=== PATIENT | male | born 1940 | race Caucasian/White ===

== ENCOUNTER 2021-01-08 06:23 | Day surgery (SDC) | payer MEDICARE ==
[2021-01-07 12:53] LABS: BASOPHILS % (AUTO) 0.7 % (0.0-5.0); EOSINOPHILS % (AUTO) 6.6 % (0.0-8.0); HEMATOCRIT 44.3 % (42-54); LYMPHOCYTES % (AUTO) 14.8 % (21.0-51.0); MEAN CORPUSCULAR HEMOGLOBIN 33.4 pg (27.0-33.0); MEAN CORPUSCULAR HGB CONC 34.1 g/dL (32.0-36.0); MONOCYTES % (AUTO) 9.7 % (3.0-13.0); NEUTROPHILS % (AUTO) 67.4 % (40.0-77.0); PLATELET COUNT (AUTO) 213 K/uL (130-400); RED BLOOD CELL COUNT(AUTO) 4.52 MIL/uL (4.50-6.20); RED CELL DISTRIBUTION WIDTH 13.2 % (11.0-15.5); WHITE BLOOD COUNT (AUTO) 7.6 K/uL (4.8-10.8)
[2021-01-07 13:01] LABS: CREATININE 1.4 mg/dL (0.5-1.5); POTASSIUM 4.2 mmol/L (3.5-5.1)
[2021-01-07 15:59] VITALS: BP 118/72
[2021-01-08] VITALS (16 sets, daily range): BP systolic 104–131; BP diastolic 58–80
[~2021-01-08] VITALS: Ht 175.3 cm; Wt 92.1 kg
[~2021-01-08 06:23] MED LIST: CARB-38 PO; P-EP-94 PO; PRIM50TA29 PO
[2021-01-08] MEDS ORDERED: CETI10TA57 PO (07:10)
[2021-01-08] MEDS ORDERED: CLONIDINE SL (07:10)
[2021-01-08] MEDS ORDERED: LACTATED RINGERS 1000ML 1,000 ML IV ONE (07:16)
[2021-01-08] MEDS: CEFAZOLIN SODIUM 1 GM VIAL ONE ×2 (07:48→08:35)
[2021-01-08] MEDS ORDERED: LIDOCAINE PF 100MG/5ML (2%) SYRINGE 5ML ONE (08:05)
[2021-01-08] MEDS ORDERED: PROPOFOL 10 MG/ML 20ML VIAL IV ONE (08:06)
[2021-01-08] MEDS ORDERED: FENTANYL CITRATE PF 50 MCG/1 ML 2ML VIAL ONE (08:06)
[2021-01-08] MEDS ORDERED: PHENYLEPHRINE HCL 10 MG/ML 1ML VIAL IV ONE (08:54)
[2021-01-08] MEDS ORDERED: 0.9%NACL 10ML VIAL ONE (08:55)
[2021-01-08] MEDS ORDERED: CEPH500B PO (09:59)
[2021-01-08] MEDS ORDERED: ACET1TAB25 PO (09:59)
[2021-01-08] MEDS ORDERED: MEPERIDINE-PF 25 MG/ML SYG ONE ×2 (10:14→10:30)
== END 2021-01-08 12:00 | disposition home or self-care (01) ==
LOC: DAH 06:23
PROVIDERS: ATTEND Orthopaedic Surgery
DX: M67.262 Synovial hypertrophy, not elsewhere classified, left lower leg (principal); M22.2X2 Patellofemoral disorders, left knee; G89.29 Other chronic pain; G20 Parkinson's disease; M19.90 Unspecified osteoarthritis, unspecified site; Z98.890 Other specified postprocedural states; Z85.828 Personal history of other malignant neoplasm of skin; Z79.899 Other long term (current) drug therapy; Z96.652 Presence of left artificial knee joint; Z20.822 Contact with and (suspected) exposure to COVID-19
CPT/HCPCS: 29873; 29875; 36415; 80048; 85025; 87426; A4215; A4221; A4222; A4223; A4649 ×2; A4663; A4930; A6223; J0690; J2001; J2175 ×2; J2370; J2704; J3010; J7120

== ENCOUNTER 2021-03-13 14:56 | Inpatient (IN) | payer MEDICARE ==
[~2021-03-13] VITALS: Ht 175.3 cm; Wt 93.0 kg
[~2021-03-13 14:56] MED LIST changes: +ACET1TAB25 PO; +CEPH500B PO; +CETI10TA57 PO; +CLONIDINE SL
[2021-03-13 15:16] LABS: BASOPHILS % (AUTO) 0.5 % (0.0-5.0); EOSINOPHILS % (AUTO) 6.1 % (0.0-8.0); MEAN CORPUSCULAR HEMOGLOBIN 32.4 pg (27.0-33.0); MEAN CORPUSCULAR HGB CONC 34.3 g/dL (32.0-36.0); MEAN CORPUSCULAR VOLUME 94.6 fL (79-99); NEUTROPHILS % (AUTO) 67.5 % (40.0-77.0); PLATELET COUNT (AUTO) 208 K/uL (130-400); RED BLOOD CELL COUNT(AUTO) 4.44 MIL/uL (4.50-6.20); WHITE BLOOD COUNT (AUTO) 9.6 K/uL (4.8-10.8)
[2021-03-13 15:43] LABS: INR 1.06 (0.85-1.15); PROTHROMBIN TIME 11.5 SEC (9.6-11.6)
[2021-03-13 15:45] LABS: PARTIAL THROMBOPLASTIN TIME 27.9 SEC (26.3-35.5)
[2021-03-13 15:49] LABS: CREATININE 1.3 mg/dL (0.5-1.5); POTASSIUM 3.8 mmol/L (3.5-5.1)
[2021-03-13 15:55] LABS: ABG BASE EXCESS -2.5 mmol/L (-2.0-3.0); ABG HCO3 20.3 mmol/L (21.0-28.0); ABG OXYGEN SATURATION 91.7 % (95.0-99.0); ABG PCO2 30 mmHg (35-48)
[2021-03-13 15:59] LABS: ALBUMIN 3.6 g/dL (3.5-5.0); BILIRUBIN,TOTAL 0.5 mg/dL (0.2-1.0); TOTAL PROTEIN, SERUM 7.5 g/dL (6.0-8.3)
[2021-03-13] MEDS ORDERED: IOHEXOL-350 75 ML VIAL IV ONE (16:38)
[2021-03-13] MEDS ORDERED: 0.9% NACL 500ML IV.SOLN 500 ML IV ONE (18:30)
[2021-03-13] MEDS ORDERED: HEPARIN 5,000 UNIT VIAL IV ONE (19:00)
[2021-03-13] MEDS ORDERED: HEPARIN 5,000 UNIT VIAL ONE (20:12)
[2021-03-13] MEDS: HEPARIN 25000 UNITS/D5W 250ML IV SCH (20:26)
[2021-03-13] MEDS ORDERED: ONDANSETRON 4MG INJ IV PRN (20:30)
[2021-03-13] MEDS ORDERED: MORPHINE 2 MG SYG IV PRN (20:30)
[2021-03-13] MEDS ORDERED: FAMOTIDINE 20MG VIAL IV SCH (21:00)
[2021-03-13] MEDS: LACTATED RINGERS 1000ML 1,000 ML IV SCH (22:26)
[2021-03-14 01:55] LABS: INR 1.14 (0.85-1.15); PROTHROMBIN TIME 12.3 SEC (9.6-11.6)
[2021-03-14 02:10] LABS: PARTIAL THROMBOPLASTIN TIME > 139.0 SEC (26.3-35.5)
[2021-03-14 04:52] LABS: ABG BASE EXCESS -0.4 mmol/L (-2.0-3.0); ABG HCO3 22.8 mmol/L (21.0-28.0); ABG OXYGEN SATURATION 95.8 % (95.0-99.0); ABG PCO2 34 mmHg (35-48)
[2021-03-14 07:10] LABS: BASOPHILS % (AUTO) 0.5 % (0.0-5.0); HEMATOCRIT 39.1 % (42-54); LYMPHOCYTES % (AUTO) 17.3 % (21.0-51.0); MEAN CORPUSCULAR HEMOGLOBIN 33.3 pg (27.0-33.0); MEAN CORPUSCULAR HGB CONC 34.5 g/dL (32.0-36.0); MEAN CORPUSCULAR VOLUME 96.3 fL (79-99); MONOCYTES % (AUTO) 8.3 % (3.0-13.0); NEUTROPHILS % (AUTO) 65.3 % (40.0-77.0); PLATELET COUNT (AUTO) 164 K/uL (130-400); RED BLOOD CELL COUNT(AUTO) 4.06 MIL/uL (4.50-6.20); WHITE BLOOD COUNT (AUTO) 6.5 K/uL (4.8-10.8)
[2021-03-14 07:20] LABS: CREATININE 1.1 mg/dL (0.5-1.5); PHOSPHORUS 3.6 mg/dL (2.5-4.9)
[2021-03-14 07:35] LABS: INR 1.1 (0.85-1.15); PROTHROMBIN TIME 11.9 SEC (9.6-11.6)
[2021-03-14 07:47] LABS: PARTIAL THROMBOPLASTIN TIME 98.2 SEC (26.3-35.5)
[2021-03-14 08:14] VITALS: BP 123/85
[2021-03-14 09:00] VITALS: BP 131/79
[2021-03-14 10:00] VITALS: BP 128/76
[2021-03-14] MEDS: LACTATED RINGERS 1000ML 1,000 ML IV SCH (10:05)
[2021-03-14] MEDS ORDERED: PANTOPRAZOLE 40 MG/VIAL IVP SCH (13:02)
[2021-03-14] MEDS: HEPARIN 25000 UNITS/D5W 250ML IV SCH (14:53)
== END 2021-03-14 15:00 | disposition short-term general hospital (02) | DRG 299 ==
LOC: EDH 14:56 → EDHIP 20:07 → 2DH 03-14 08:09
PROVIDERS: ADMIT Internal Medicine; ATTEND Internal Medicine
DX: I82.411 Acute embolism and thrombosis of right femoral vein (principal); I26.09 Other pulmonary embolism with acute cor pulmonale; J96.01 Acute respiratory failure with hypoxia; I82.432 Acute embolism and thrombosis of left popliteal vein; I82.431 Acute embolism and thrombosis of right popliteal vein; M19.90 Unspecified osteoarthritis, unspecified site; J44.9 Chronic obstructive pulmonary disease, unspecified; G20 Parkinson's disease; Z20.822 Contact with and (suspected) exposure to COVID-19; Z85.828 Personal history of other malignant neoplasm of skin; Z83.3 Family history of diabetes mellitus; Z82.49 Family history of ischemic heart disease and other diseases of the circulatory system
CPT/HCPCS: 36415; 36600; 71045; 71275; 80048; 80053; 82435; 82803; 82947; 83605; 83735; 83880; 84100; 84132; 84295; 84484; 85018; 85025; 85610; 85730; 86850; 86900; 86901; 87040; 87635; 87804; 93005; 93306; 93356; 93970; 99291; 99292; C9803; G0378; J1644; J3490; J7120; Q9967

== ENCOUNTER → 2022-11-19 | Outpatient (CLI) | payer MEDICARE ==
[~2022-11-19] MED LIST changes: +ACET-2079 PO; -ACET1TAB25 PO
== END | disposition home or self-care (01) ==
LOC: RAH 13:35
PROVIDERS: ATTEND Internal Medicine Critical Care Medicine
DX: I24.0 Acute coronary thrombosis not resulting in myocardial infarction (principal); I82.411 Acute embolism and thrombosis of right femoral vein
CPT/HCPCS: 93970

== ENCOUNTER → 2023-01-05 | Outpatient (CLI) | payer MEDICARE | END | disposition home or self-care (01) | LOC: RAH 13:40 | PROVIDERS: ATTEND Internal Medicine Critical Care Medicine | DX: I08.0 Rheumatic disorders of both mitral and aortic valves (principal); J81.1 Chronic pulmonary edema; I27.20 Pulmonary hypertension, unspecified | CPT/HCPCS: 93306 ==

== ENCOUNTER → 2023-01-27 | Outpatient (CLI) | payer MEDICARE | END | disposition home or self-care (01) | LOC: RAH 14:17 | PROVIDERS: ATTEND Internal Medicine Critical Care Medicine | DX: J84.112 Idiopathic pulmonary fibrosis (principal); I25.10 Atherosclerotic heart disease of native coronary artery without angina pectoris; J47.9 Bronchiectasis, uncomplicated | CPT/HCPCS: 71250 ==

== ENCOUNTER 2025-01-18 15:44 | Observation (INO) | payer MEDICARE ==
[~2025-01-18] VITALS: Ht 170.2 cm; Wt 77.6 kg
[~2025-01-18 15:44] MED LIST changes: -ACET-2079 PO; +AMIO200T73 PO; +APIX2.5T PO; +ASCO10004 PO; +ASPI-1005 PO; -CEPH500B PO; -CLONIDINE SL; +DAPA10TA PO; +DIGO125T71 PO; +DOCU100C33 PO; +EZET10TA80 PO; +FURO20TA6 PO; +GABA-529 PO; +IPRA3AMP24 NEB; +LEVO75TA10 PO; +MELA5CAP PO; +METO25TA6 PO; +MIDO10TA3 PO; -P-EP-94 PO; +PRIM50TA23 PO; -PRIM50TA29 PO
--- NOTE | 2025-01-18 15:56 | ERN ---
ED Note History of Present Illness Stated Complaint: CHEST PAIN Chief Complaint: Chest Pain Time Seen by MD: 15:47 Dictation: PATIENT IS A 84-YEAR-OLD MALE COMING FROM A LOCAL GROUP HOME VIA EMS WITH COMPLAINTS OF ANTERIOR CHEST PAIN THAT HURTS WHEN YOU TOUCH IT ONSET THIS MORNING. NO SOB NO JAW PAIN NO ARM PAIN NO BACK PAIN. STATES HE DOES HAVE A HISTORY OF CARDIAC DISEASE. PATIENT HAS A RASH TO HIS LEFT ANTERIOR CHEST THAT DOES NOT CROSS MIDLINE VESICULAR. Allergies: Coded Allergies: No Known Drug Allergies (Verified Allergy, Unknown, 06/28/15) Home Meds Reported Medications Gabapentin (Gabapentin) 100 Mg Capsule, 1 CAP PO TID for 30 Days, #90 CAP 0 Refills 10/20/24 Carbidopa/Levodopa (Carbidopa-Levo 25-100 mg Odt) 25 Mg-100 Mg Tab.rapdis, 1 TAB PO TID for 30 Days, #90 TAB 0 Refills 10/20/24 Ezetimibe (Ezetimibe) 10 Mg Tablet, 1 TAB PO DAILY for 30 Days, #30 TAB 0 Refills 10/20/24 Melatonin (Melatonin) 5 Mg Capsule, 1 CAP PO HS for sleep for 30 Days, #30 CAP 0 Refills 10/20/24 Levothyroxine Sodium (Levothyroxine Sodium) 75 Mcg Tablet, 1 TAB PO DAILY for 30 Days, #30 TAB 0 Refills 25 Ascorbic Acid (Vitamin C) 1,000 Mg Tablet, 1 TAB PO DAILY for 15 Days, #15 TAB 0 Refills DIRECTED 10/20/24 Amiodarone HCl (Amiodarone HCl) 200 Mg Tablet, 1 TAB PO DAILY for 30 Days, #30 TAB 0 Refills 10/20/24 Aspirin (ASPIRIN 81MG CHEW TAB) 81 Mg Tab.chew, 1 TAB PO DAILY for 30 Days, #30 TAB 0 Refills 10/20/24 Cetirizine HCl (Cetirizine HCl) 10 Mg Tablet, 1 TAB PO DAILY for 30 Days, #30 TAB 0 Refills 10/20/24 Dapagliflozin Propanediol (Farxiga) 10 Mg Tablet, 1 TAB PO DAILY for 30 Days, #30 TAB 0 Refills 10/20/24 Docusate Sodium (Docusate Sodium) 100 Mg Capsule, 1 CAP PO BID for constipation for 7 Days, #14 CAP 0 Refills 10/20/24 Furosemide (Lasix 20Mg Tab) 20 Mg Tablet, 1 TAB PO DAILY for 30 Days, #30 TAB 0 Refills 10/20/24 Primidone (Mysoline) 50 Mg Tablet, 50 MG PO AM, TAB 10/20/24 Metoprolol Tartrate (Metoprolol Tartrate) 25 Mg Tablet, 12.5 MG PO BID, TAB 10/20/24 Digoxin (Digoxin) 125 Mcg (0.125 Mg) Tablet, 1 TAB PO AD for 30 Days, #30 TAB 0 Refills 10/20/24 Midodrine HCl (Midodrine HCl) 10 Mg Tablet, 10 MG PO AD, TAB 10/20/24 Ipratropium/Albuterol Sulfate (Iprat-Albut 0.5-3(2.5) mg/3 ml) 0.5 Mg-3 Mg (2.5 Mg Base)/3 Ml Ampul.neb, 1 VIAL NEB BID PRN for SHORTNESS OF BREATH/WHEEZING for 30 Days, #180 ML 0 Refills 10/20/24 Apixaban (Eliquis) 2.5 Mg Tablet, 1 TAB PO BID for 30 Days, #60 TAB 0 Refills 10/20/24 Past Medical History Past Medical History: Anxiety, Arrythmia, CHF, Diverticulosis, GERD, Hypertension, Hypothyroid, Hypotension, Other Additional Past Medical Hx: parkinsons, sleep apnea, insomnia, hypermatremia, epilepsy Surgical History: CABG Surgical History Other: ORTHOSCOPIC KNEE LEFT, BACK , RN Note Reviewed/Agreed w/PFSH: Yes Review of System Dictation CONSTITUTIONAL: NEGATIVE EXCEPT FOR HPI HEAD/FACE: NEGATIVE EXCEPT FOR HPI EENT: NEGATIVE EXCEPT FOR HPI RESPIRATORY: NEGATIVE EXCEPT FOR HPI CHEST PAIN THAT IS BURNING GASTROINTESTINAL/ABDOMINAL: NEGATIVE EXCEPT FOR HPI GENITOURINARY: NEGATIVE EXCEPT FOR HPI MUSCULOSKELETAL: NEGATIVE EXCEPT FOR HPI INTEGUMENTARY: NEGATIVE EXCEPT FOR HPI NEUROLOGICAL/PSYCH: NEGATIVE EXCEPT FOR HPI HEMATOLOGIC/LYMPHATIC: NEGATIVE EXCEPT FOR HPI ALL SYSTEMS NEGATIVE, EXCEPT NOTED ABOVE. 13 POINT REVIEW OF SYSTEMS ASSESSED AND ALL NEGATIVE EXCEPT FOR ABOVE. Initial Vital Sign VS Vital Signs Date Time Temp Pulse Resp B/P (MAP) Pulse Ox O2 Delivery O2 Flow Rate FiO2 01/18/25 15:45 83 20 119/83 97 Room Air* 0 21 Physical Exam Dictation VITAL SIGNS REVIEWED GENERAL APPEARANCE: ALERT, ORIENTED X 3, MODERATE ACUTE DISTRESS, WELL DEVELOPED, NOURISHED. HEAD AND FACE: NON-TRAUMATIC. EYES: PERRL, PINK CONJUNCTIVAS, EYELID NO TRAUMA, ANTERIOR CHAMBER WITH ARCUS SENILIS. EARS: PINNAS INTACT AND NO SIGNS OF TRAUMA OR ERYTHEMA EAR CANALS CLEAR AND NO DISCHARGE TM NO ERYTHEMA NOSE: NO DISCHARGE, NO BLEEDING. OROPHARYNX: MOUTH NORMAL, TONGUE PINK, PHARYNX CLEAR,NO ERYTHEMA, TONSILS NO EXUDATES, NO ABSCESSES NOTED, MUCOUS MEMBRANE MOIST NECK: SUPPLE, NON-TENDER, NO THYROMEGALY, NO MASSES, NO JVD, NO BRUITS BREAST:DEFERRED CHEST:NO TENDERNESS, NO CREPITUS, NO PARADOXICAL MOVEMENT, NO RETRACTIONS LUNGS:CLEAR, WELL-VENTILATED, SYMMETRIC, NO RALES, NO WHEEZING, NO RHONCHI, NO STRIDOR, GOOD BREATH SOUNDS BILATERALLY HEART: REGULAR RATE, REGULAR RHYTHM, NO MURMUR, NO GALLOPS VASCULAR: NO PERIPHERAL EDEMA, ABDOMEN: SOFT, POSITIVE BOWEL SOUNDS, NONDISTENDED, NO GUARDING, NONTENDER, NO REBOUND, NO MASSES NO HEPATOMEGALY, NO SPLENOMEGALY, NO NAPOLES'S SIGN, NO HERNIAS. RECTAL: DEFERRED GENITAL: DEFERRED NEUROLOGICAL: NORMAL SPEECH, MOTOR FUNCTION INTACT, SENSORY FUNCTION INTACT MUSCULOSKELETAL: NECK NONTENDER, FULL RANGE OF MOTION, BACK NONTENDER, FULL RANGE OF MOTION, EXTREMITIES: NONTENDER, FULL RANGE OF MOTION SKIN: COLOR PINK, SHINGLES RASH VESICULAR AND CONFLUENT TO LEFT ANTERIOR CHEST DOES NOT CROSS MIDLINE LYMPHATIC: DEFERRED Results (Laboratory/Radiology) Laboratory/Radiology Laboratory Tests Test 01/18/25 16:15 01/18/25 20:15 White Blood Count 6.7 K/uL (4.8-10.8) Red Blood Count 3.69 MIL/uL (4.50-6.20) L Hemoglobin 11.5 g/dL (14.0-18.0) L Hematocrit 36.6 % (42-54) L Mean Corpuscular Volume 99.2 fL (79-99) H Mean Corpuscular Hemoglobin 31.2 pg (27.0-33.0) Mean Corpuscular Hemoglobin Concent 31.4 g/dL (32.0-36.0) L Red Cell Distribution Width 17.0 % (11.0-15.5) H Platelet Count 317 K/uL (130-400) Mean Platelet Volume 8.3 fL (7.5-10.5) Immature Granulocyte % (Auto) 0.7 % (0-1) Neutrophils (%) (Auto) 82.5 % (40.0-77.0) H Lymphocytes (%) (Auto) 9.1 % (21.0-51.0) L Monocytes (%) (Auto) 7.3 % (3.0-13.0) Eosinophils (%) (Auto) 0.3 % (0.0-8.0) Basophils (%) (Auto) 0.1 % (0.0-5.0) Neutrophils # (Auto) 5.5 K/uL (1.8-7.7) Lymphocytes # (Auto) 0.6 K/uL (1.0-4.8) L Monocytes # (Auto) 0.5 K/uL (0.1-1.0) Eosinophils # (Auto) 0.02 K/uL (0.00-0.70) Basophils # (Auto) 0.01 K/uL (0.00-0.20) Absolute Immature Granulocyte (auto 0.05 K/uL (0-1) Nucleated Red Blood Cells 0.0 % (0.0-0.19) White Cell Morphology Comment See comments Sodium Level 139 mmol/L (136-145) Potassium Level 4.1 mmol/L (3.5-5.1) Chloride Level 98 mmol/L (101-111) L Carbon Dioxide Level 33 mmol/L (21-32) H Blood Urea Nitrogen 21 mg/dL (7-18) H Creatinine 1.1 mg/dL (0.5-1.3) Glomerular Filtration Rate Calc 66 mL/min (>90) Random Glucose 181 mg/dL (70-105) H Total Calcium 9.3 mg/dL (8.5-10.1) Magnesium Level 2.30 mg/dL (1.80-2.40) Troponin I High Sensitivity 15 ng/L (4-75) 44 ng/L (4-75) B-Type Natriuretic Peptide 164 pg/mL (0-100) H CHEST 1VW REASON: CHEST PAIN COMPARISON: Prior study from 11/06/2024 is available. FINDINGS: Single view of the chest was obtained. There is prominence of interstitial changes suggesting of interstitial fibrosis which was seen before and appears to be unchanged with no evidence of airspace consolidation or pulmonary venous congestion. The cardiac silhouette is within the limits of normal with median sternotomy with left atrial clipping.. There is no pulmonary vascular congestion. Mediastinum and bony thorax appear unremarkable. IMPRESSION: 1. Interstitial fibrosis which was seen before and appears to be unchanged 2. Status post median sternotomy with cardiac revascularization procedure with left atrial clipping. Labs Reviewed?: Yes EKG Comment: EKG IS SINUS RHYTHM/HEART RATE 84/OK INTERVAL 253 MILLISECONDS. QT INTERVAL 513 MILLISECONDS ED Course ED Course Orders Procedure Category Date Status Time B-Type Natriuretic LAB 01/18/25 Complete Peptide 15:53 Cbc With Differential LAB 01/18/25 Complete 15:53 Chest 1vw RAD 01/18/25 Resulted 15:53 Magnesium LAB 01/18/25 Complete 15:53 Troponin I High LAB 01/18/25 Complete Sensitivity 15:53 Aspirin 325mg Tab PHA 01/18/25 Complete (Aspirin 325mg Tab) 16:00 Urinalysis Profile LAB 01/18/25 Logged 15:53 Basic Metabolic Panel LAB 01/18/25 Complete 15:53 Morphine 2mg Syg PHA 01/18/25 Complete (Morphine 2mg Syg) 17:00 Ondansetron 4mg Inj PHA 01/18/25 Complete (Zofran 4mg Inj) 17:00 0.9%Nacl 1000ml (Ns PHA 01/18/25 Complete 1000ml) 18:00 12 Lead Ekg Tracing- EKG 01/18/25 Complete Technical 20:04 Troponin I High LAB 01/18/25 Complete Sensitivity 20:04 Edm Admit Bridge Order ADM 01/18/25 Verified 20:44 Admit Orders ADM 01/18/25 Verified 20:44 Current Medications Medications (Trade) Dose Ordered Sig/Andreia Route PRN Reason Start Time Stop Time Status Last Admin Dose Admin Aspirin (Aspirin 325mg Tab) 325 mg ONCE ONCE PO 01/18/25 16:00 01/18/25 16:01 DC 01/18/25 16:56 Morphine Sulfate (morPHINE 2MG SYG) 2 mg ONCE ONCE IVP 01/18/25 17:00 01/18/25 17:01 DC 01/18/25 16:56 Ondansetron HCl (zoFRAN 4MG INJ) 4 mg ONCE ONCE IVP 01/18/25 17:00 01/18/25 17:01 DC 01/18/25 16:56 Sodium Chloride 1,000 ml @ 0 mls/hr ONCE ONCE IV 01/18/25 18:00 01/18/25 18:01 DC Vital Signs Date Time Temp Pulse Resp B/P (MAP) Pulse Ox O2 Delivery O2 Flow Rate FiO2 01/18/25 17:24 84 20 110/71 97 Nasal Cannula* 2 01/18/25 15:46 86 17 118/69 95 Nasal Cannula 4.0 01/18/25 15:45 83 20 119/83 97 Room Air* 0 2004/SPOKE WITH PATIENT AND STATES HE IS STILL HAVING CHEST PAIN. WE WILL GIVE DECADRON FOR NEUROPATHIC PAIN. HE HAS ALSO RECEIVED A L OF FLUIDS 1ST ACUTE ON CHRONIC KIDNEY INJURY AND WE WILL BE ADMITTED TO THE HOSPITAL FOR HIGH-RISK CHEST PAIN DUE TO HIS CARDIAC HISTORY AND BYPASS SURGERY NEUROPATHIC PAIN DEHYDRATION2 2044/SPOKE WITH CYNTHIA NEGRETE HOSPITALIST AND REVIEWED EKG LABS CHEST X-RAY AND INTERVENTIONS FOR PAIN. HE AGREED TO ADMIT PATIENT. HEART Score Response (Comments) Value EKG: Repolarization changes 1 Age: > 65yrs (+2) 2 Risk Factors: 3+ risk factors (+2) 2 Initial Troponin: Normal limit (0) 0 Total 5 Medical Decision Making MDM MDM: DIFFERENTIAL DIAGNOSIS: HIGH-RISK CHEST PAIN/SHINGLES/NEUROPATHIC PAIN/DEHYDRATION/SEPSIS/PNEUMONIA/BRONCHITIS/FAILURE TO THRIVE RATIONALE: TESTS CONSIDERED AND ORDERED SECONDARY TO SHARED DECISION MAKING INCLUDE: LABS, ECG AND RADIOLOGY PREVIOUS OUTSIDE RECORDS REVIEWED: OLD ER VISITS. RISK OF COMPLICATION AND/OR MORBIDITY OR MORTALITY OF PATIENT MANAGEMENT: NONE MEDICATIONS-PER MEDICATION RECONCILIATION NEED FOR HOSPITALIZATION: PATIENT DOES MEET CRITERIA FOR HOSPITALIZATION. REHYDRATION FOR GIOVANNY, MANAGEMENT OF NEUROPATHIC PAIN AND REPEAT CARDIAC ENZYMES EKG NEED FOR EMERGENCY MAJOR/MINOR SURGERY: NO THERE ARE NO SOCIAL CONCERNS WITH THIS PATIENT. GROUP HOME PATIENT PRESCRIPTION DRUG MANAGEMENT PRESCRIPTIONS WILL INCLUDE SYMPTOMATIC CARE PATIENT'S PRIOR EXTERNAL MEDICAL RECORDS FROM OTHER ER VISITS WERE REVIEWED BY ME INDICATED. PRIOR TESTING AND RESULTS FROM PREVIOUS VISITS WERE REVIEWED. PRIOR TESTS WERE TAKEN INTO ACCOUNT WITH MEDICAL DECISION MAKING AND RESOURCE UTILIZATION, INDEPENDENT HISTORIAN/HISTORIANS WERE USED TO OBTAIN COMPLETE MEDICAL HISTORY. I INDEPENDENTLY INTERPRETED THE TEST THAT WERE PERFORMED, RESULTS WERE REVIEWED BY ME AND CONSIDERED FINDINGS ON RADIOLOGY IF ORDERED. MEDICAL MANAGEMENT AND EXAMINATION INTERPRETATION DISCUSSIONS WERE HAD BY ME WITH OTHER QUALIFIED HEALTHCARE PROFESSIONALS INDICATED FOR THE PATIENT'S CARE. DX & DISP Disposition: Inpatient Decision to Admit Time: :07 Departure Impression: Primary Impression: Chest pain with high risk of acute coronary syndrome Additional Impressions: [id number] kidney injury, Dehydration, Shingles rash, Neuropathic pain, Neuropathic pain of chest Condition: Stable Referrals: VIANCA TRAN MD (PCP) Time of Disposition: 20:08 I have reviewed the case, and I agree with, Diagnosis and Plan MAURI HALL NP Jan 18, 2025 15:56
--- NOTE | 2025-01-18 16:20 | HMCIMG ---
CHEST 1VW REASON: CHEST PAIN COMPARISON: Prior study from 11/06/2024 is available. FINDINGS: Single view of the chest was obtained. There is prominence of interstitial changes suggesting of interstitial fibrosis which was seen before and appears to be unchanged with no evidence of airspace consolidation or pulmonary venous congestion. The cardiac silhouette is within the limits of normal with median sternotomy with left atrial clipping.. There is no pulmonary vascular congestion. Mediastinum and bony thorax appear unremarkable. IMPRESSION: 1. Interstitial fibrosis which was seen before and appears to be unchanged 2. Status post median sternotomy with cardiac revascularization procedure with left atrial clipping.
[2025-01-18 16:23] LABS: IMMATURE GRANULOCYTE ABSOLUTE 0.05 K/uL (0-1); NUCLEATED RED BLOOD CELLS 0.0 % (0.0-0.19); PLATELET COUNT (AUTO) 317 K/uL (130-400); RED BLOOD CELL COUNT(AUTO) 3.69 MIL/uL (4.50-6.20); RED CELL DISTRIBUTION WIDTH 17.0 % (11.0-15.5); WHITE BLOOD COUNT (AUTO) 6.7 K/uL (4.8-10.8)
[2025-01-18 16:28] LABS: CREATININE 1.1 mg/dL (0.5-1.3); GLOMERULAR FILTR. RATE CALC 66.0 mL/min (>90); GLUCOSE,RANDOM 181.0 mg/dL (70-105); SODIUM SERUM 139.0 mmol/L (136-145); UREA NITROGEN, BLOOD 21.0 mg/dL (7-18)
[2025-01-18] MEDS: ASPIRIN 325MG TAB PO ONE (16:56)
[2025-01-18] MEDS: 0.9%NACL 1000ML 1,000 ML IV ONE (18:00)
--- NOTE | 2025-01-18 19:30 | NUR ---
PT CARE ASSUMED AT THIS TIME
--- NOTE | 2025-01-18 20:39 | EKG ---
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 : 1940 Requested By: MAURI HALL Order Number: [id number] Reading MD: Ashia Hunter Measurements Intervals [place] Rate: 93 P: 206 WY: 137 QRS: -30 QRSD: 109 T: 46 QT: 497 QTc: 621 Interpretive Statements Ectopic atrial rhythm Inferior infarct, old Anteroseptal infarct, age indeterminate Prolonged QT interval Compared to ECG 03/13/2021 14:53:23 Ectopic atrial rhythm now present Myocardial infarct finding now present Prolonged QT interval now present Sinus tachycardia no longer present Electronically Signed On 01-22-2025 14:53:12 CDT by Ashia Hunter Please click the below link to view image of tracing.
--- NOTE | 2025-01-18 21:15 | NUR ---
UPDATE GIVEN TO DANIELLE WILLSON AT [facility] AT THIS TIME
--- NOTE | 2025-01-18 21:57 | NUR ---
HEB[employer] INSPECTOR ASSEMBLY AT BEDSIDE AT THIS TIME
--- NOTE | 2025-01-18 22:29 | HP ---
[facility] HISTORY & PHYSICAL Date Patient Seen: Jan 18, 2025 Time of Visit: 22:20 Supervising Physician: DR. REAGAN ADLER Primary Care Physician: VIANCA TORRES Outpatient Specialists: [ ] Inpatient Consults: [ ] PROBLEM LIST: 1. UNSTABLE ANGINA 2. DIABETES TYPE 2 UNCONTROLLED 3. SHINGLES TO THE CHEST, POA 4. PARKINSON DISEASE, POA 5. UNSTEADY GAIT, POA CHIEF COMPLAINT: Chest pain HPI: Patient is a 84-year-old male resident [facility], with past medical history significant for coronary artery disease, hypothyroidism, diabetes type 2, and a surgical history of left knee surgery, back surgery, CABG, brought to the emergency department from the facility for evaluation of new onset of chest pain that started yesterday. Patient reports that for the past 24 hours, he has been experiencing on and off chest pain, and tonight, patient was transferred to the emergency department for further evaluation and treatment. Patient denies fever, chills, nausea, vomiting, diarrhea, shortness of breath, dizziness, or any other symptoms. Chest x-ray performed in the emergency department shows interstitial lung fibrosis. EKG unremarkable, troponin negative for the 1st two sets. In the emergency department, patient received aspirin 325 mg p.o.. Patient will be admitted to medical telemetry floor for further evaluation and treatment. PAST MEDICAL HX: see above PAST SURGICAL HX: noncontributory SOCIAL HISTORY: No tobacco, ETOH, or illicit drug use Coded Allergies: No Known Drug Allergies (Verified Allergy, Unknown, 06/28/15) REVIEW OF SYSTEMS: 12 point ROS reviewed with patient. Pertinent positives mentioned above. Otherwise negative. PHYSICAL EXAM: GENERAL: alert, weak, awake oriented x 3 HEENT: EOMI, Sclera non icteric, moist mucosa NECK: Supple, no JVD, trachea midline LUNGS: Clear breath sounds bilaterally. No wheezes HEART: Regular rate and rhythm. Normal S1 and S2, without murmurs ABD: Abdomen soft, nontender. Bowel sounds present EXT: No clubbing cyanosis or edema NEURO: Alert and oriented to person, follows commands Vital Signs (last 8hr) Date Time Temp Pulse Resp B/P (MAP) Pulse Ox O2 Delivery O2 Flow Rate FiO2 01/18/25 17:24 84 20 110/71 97 Nasal Cannula* 2 28 01/18/25 15:46 86 17 118/69 95 Nasal Cannula 4.0 01/18/25 15:45 83 20 119/83 97 Room Air* 0 21 LABS: Hematology Labs: Test 01/18/25 16:15 Range/Units White Blood Count 6.7 4.8-10.8 K/uL Red Blood Count 3.69 L 4.50-6.20 MIL/uL Hemoglobin 11.5 L 14.0-18.0 g/dL Hematocrit 36.6 L 42-54 % Mean Corpuscular Volume 99.2 H 79-99 fL Mean Corpuscular Hemoglobin 31.2 27.0-33.0 pg Mean Corpuscular Hemoglobin Concent 31.4 L 32.0-36.0 g/dL Red Cell Distribution Width 17.0 H 11.0-15.5 % Platelet Count 317 130-400 K/uL Mean Platelet Volume 8.3 7.5-10.5 fL Immature Granulocyte % (Auto) 0.7 0-1 % Neutrophils (%) (Auto) 82.5 H 40.0-77.0 % Lymphocytes (%) (Auto) 9.1 L 21.0-51.0 % Monocytes (%) (Auto) 7.3 3.0-13.0 % Eosinophils (%) (Auto) 0.3 0.0-8.0 % Basophils (%) (Auto) 0.1 0.0-5.0 % Neutrophils # (Auto) 5.5 1.8-7.7 K/uL Lymphocytes # (Auto) 0.6 L 1.0-4.8 K/uL Monocytes # (Auto) 0.5 0.1-1.0 K/uL Eosinophils # (Auto) 0.02 0.00-0.70 K/uL Basophils # (Auto) 0.01 0.00-0.20 K/uL Absolute Immature Granulocyte (auto 0.05 0-1 K/uL Nucleated Red Blood Cells 0.0 0.0-0.19 % White Cell Morphology Comment See comments Chemistry Labs: Test 01/18/25 20:15 01/18/25 16:15 Range/Units Troponin I High Sensitivity 44 4-75 ng/L Sodium Level 139 136-145 mmol/L Potassium Level 4.1 3.5-5.1 mmol/L Chloride Level 98 L 101-111 mmol/L Carbon Dioxide Level 33 H 21-32 mmol/L Blood Urea Nitrogen 21 H 7-18 mg/dL Creatinine 1.1 0.5-1.3 mg/dL Glomerular Filtration Rate Calc 66 >90 mL/min Random Glucose 181 H 70-105 mg/dL Total Calcium 9.3 8.5-10.1 mg/dL Magnesium Level 2.30 1.80-2.40 mg/dL B-Type Natriuretic Peptide 164 H 0-100 pg/mL DIAGNOSTICS / RADIOLOGY RESULTS: [ ] PLAN NEURO: Minimize central acting medications as possible. Maintain fall precautions, adequate lighting during the day PULMONARY: Supplemental 02 as needed. Maintain aspiration precautions at all times CARDIOVASCULAR: Follow hemodynamics. Vital signs per facility protocol Nitroglycerin 0.4 mg sublingual p.r.n. for moderate chest pain Aspirin 81 mg p.o. daily Atorvastatin 40 mg p.o. at bedtime 2D echo cardiology read Serial troponin levels GI & NUTRITION: Continue with nutritional support. Continue stool softeners and laxatives as needed. KIDNEYS & ELECTROLYTES: Strict monitoring of intake, output and overall fluid balance. Avoid nephrotoxic medications to the extent possible. Medications to be dosed according to renal function. Monitor electrolytes and replace as needed ENDOCRINE: Maintain blood glucose between 100-180 at all times. Hypoglycemia protocol in place Accu-Cheks a.c. HS Insulin coverage per sliding scale Obtain hemoglobin A1c INFECTIOUS DISEASE: Trend temperature, WBC and procalcitonin level Follow cultures, deescalate antibiotics as soon as possible. Panculture if new onset fever Valacyclovir 1000 mg p.o. every 8 hours Acetaminophen 650 mg p.o. p.r.n. every 6 hours for pain Morphine 2 mg IV q.4 hours p.r.n. for severe chest pain ONCOLOGY/HEMATOLOGY/COAGULATION: Monitor for s/s of bleeding Monitor hemoglobin, coagulation studies as needed SKIN: Pressure ulcer prevention per facility protocol Specialty mattress ORTHO/REHAB: Continue PT/OT Prophylaxis: Continue GI and DVT prophylaxis Code Status: Full Resuscitation Disposition: TBD Other: Total patient care time exceeds 35 minutes excluding all procedures. Case discussed with Dr. Reagan Adler, and the above plan was formulated. VAHE AMBROSIO Jan 18, 2025 22:29
--- NOTE | 2025-01-18 22:29 | NUR ---
REPORT GIVEN TO NURYS WILLSON AT THIS TIME
[2025-01-18] MEDS ORDERED: guaiFENesin-DM 200/20MG 10ML PO PRN (22:30)
[2025-01-18] MEDS ORDERED: NITROGLYCERIN 0.4 MG SL TAB SL PRN (22:30)
[2025-01-18] MEDS ORDERED: GLUCAGON 1MG KIT 1 MG ML IM PRN (22:30)
[2025-01-18] MEDS ORDERED: MAG/ALUM/SIMETH 30 ML UDCUP PO PRN (22:30)
[2025-01-18] MEDS ORDERED: LACTULOSE 20 GM/30 ML UDCUP PO PRN (22:30)
[2025-01-18] MEDS ORDERED: DEXTROSE 50%-WATER 50 ML DISP.SYRIN IV PRN (22:30)
--- NOTE | 2025-01-18 22:30 | NUR ---
PT CARE CONTINUED AT THIS TIME. PT REMAINED IN ED ROOM 14.
--- NOTE | 2025-01-18 22:40 | NUR ---
ATTEMPT TO GIVE REPORT AT THIS TIME. NOT SUCCESSFUL.
--- NOTE | 2025-01-18 22:48 | NUR ---
REPORT GIVEN TO GERALDO WILLSON AT THIS TIME
[2025-01-18 23:15] VITALS: BP 137/69; PULSE 84; RESP 22; TEMP 98.1
[2025-01-18 23:17] LABS: INR 1.14 (0.85-1.15)
[2025-01-18 23:30] VITALS: O2SAT 96
[2025-01-19] MEDS ORDERED: IOHEXOL-350 75 ML VIAL IV ONE (00:53)
[2025-01-19] MEDS ORDERED: FURO20TA4 PO (01:59)
[2025-01-19] MEDS ORDERED: DIGO250T73 PO (01:59)
[2025-01-19] MEDS ORDERED: METO-408 PO (01:59)
[2025-01-19] MEDS ORDERED: FERS325 PO (01:59)
[2025-01-19] MEDS ORDERED: CLOT15CR23 TP (02:04)
[2025-01-19] MEDS ORDERED: BALS60OI TP (02:04)
--- NOTE | 2025-01-19 03:18 | HMCIMG ---
EXAM: CTA examination of the chest CLINICAL HISTORY: Elevated D-dimer. TECHNIQUE: Postcontrast thin collimated axial CTA images of the chest were obtained with sagittal and coronal reformatted images also submitted. CT scan is done according to ALARA (As Low as Reasonably Achievable). COMPARISON: CT chest dated 01/27/2023. FINDINGS: Chronic peripheral interstitial thickening with mild peripheral bronchiolectasis bilaterally, compatible with chronic interstitial lung disease. No focal consolidation, pneumonia, pleural effusion, or pneumothorax. No pericardial effusion. The cardiac size is within normal limits. Status poststernotomy and CABG. Calcific atherosclerotic disease in the abdominal aorta and its branches. Mildly ectatic ascending thoracic aorta measures up to 3.9 cm in diameter. The pulmonary artery is normal in caliber without a filling defect or pulmonary thromboembolism. No mediastinal, axillary, or supraclavicular lymphadenopathy. No focal thyroid abnormality is evident. Partially visualized 0.4 cm nonobstructive calculus at the left renal upper pole. No acute bony abnormality is evident. Degenerative osseous changes. Levoscoliosis and thoracic spondylosis. IMPRESSION: No pulmonary thromboembolism. Mildly ectatic ascending thoracic aorta. Chronic interstitial lung disease. Partially visualized nonobstructive left renal calculus. No acute process. Compared to the prior study, there is no significant interval change. /[place]
[2025-01-19 04:00] VITALS: BP 121/62; PULSE 73; RESP 20; TEMP 98
--- NOTE | 2025-01-19 06:12 | EKG ---
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: [id number] : 1940 Requested By: MAURI HALL Order Number: [id number] Reading MD: Ashia Hunter Measurements Intervals [place] Rate: 84 P: -48 WY: 253 QRS: -5 QRSD: 99 T: -60 QT: 433 QTc: 513 Interpretive Statements Sinus or ectopic atrial rhythm Prolonged [place] interval Nonspecific T abnormalities, lateral leads Prolonged QT interval Compared to ECG 03/13/2021 14:53:23 Ectopic atrial rhythm now present First degree AV block now present T-wave abnormality now present Prolonged QT interval now present Sinus tachycardia no longer present Electronically Signed On 01-22-2025 14:53:07 CDT by Ashia Hunter Please click the below link to view image of tracing.
[2025-01-19 08:00] VITALS: BP 121/61; PULSE 81; RESP 16; TEMP 98.7
[2025-01-19] MEDS: ENOXAPARIN SODIUM 40 MG/0.4 ML SYRINGE SQ SCH (09:41)
[2025-01-19] MEDS: FAMOTIDINE 20MG TAB PO SCH (09:41)
[2025-01-19] MEDS: ASPIRIN 81 MG EC TAB PO SCH (09:41)
[2025-01-19 09:48] VITALS: O2SAT 96
--- NOTE | 2025-01-19 11:19 | NUR ---
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 Pt does use a walker and cane to ambulate when he has strength in his legs. Pt does require assistance from the staff to complete ADLs. PCP is Dr. Murtaza Leal and uses [facility] for any RX needs. Meliza at [facility] stated that at [place] pt can return to [facility] and also mentioned that pt daughter Lashanda Justice [phone] is pt's MPOA. Addendum: 01/19/25 at 1123 by ADELAIDE HEADLEY SS Amended: Links added.
[2025-01-19] MEDS ORDERED: NON-FORMULARY MEDICATION 1 EACH (Midodrine HCl 10 MG) PO SCH (11:30)
[2025-01-19] MEDS ORDERED: BALSAM PERU/CASTOR OIL 60 GM TUBE TP SCH (11:30)
[2025-01-19 12:00] VITALS: BP 146/67; PULSE 89; RESP 15; TEMP 99.3
--- NOTE | 2025-01-19 13:02 | HMCIMG ---
US VENOUS DOPPLER BILATERAL REASON: elev ddimer COMPARISON: None Technique: Bilateral venous doppler ultrasound was performed with spectral analysis and color flow imaging technique. FINDINGS: There is partial thrombosis of the right superficial femoral vein. The right popliteal vein and posterior tibial vein appears to be patent. The right calf pain appears to be patent. There is a normal appearance of the left common femoral, deep femoral, the profunda femoris and popliteal veins. Proximal calf veins appear normal as well. There is normal response to compression and augmentation. There is no evidence of deep venous thrombosis. IMPRESSION: Deep vein thrombosis of the right superficial femoral vein which is amenable for pharmacologic mechanical lysis which can be performed by me. No evidence of DVT of the left lower extremity.
--- NOTE | 2025-01-19 13:40 | NUR ---
SPOKE TO LEANN FROM PHARMACY. RECOMMENDED TO D/C LOVENOX BECAUSE OF PTS ELIQUIS. AMIODARONE WITH DIGOXIN RECOMMENDS TO DECREASE THE DIGOXIN DOSE TO 125 MCG, AND RECOMMENDS TO NOT INITIATE PRIMIDONE IT INTERACTS WITH ELIQUIS AND IT REDUCES THE EFFECT OF THE ELIQUIS. LAW FIRM RECEPTIONIST TORY MAYFIELD WAS MADE AWARE & IS OK WITH THESE RECOMMENDATIONS. PHARMACY PROCEEDED WITH CHANGES TO THE MEDICATIONS.
--- NOTE | 2025-01-19 14:50 | NUR ---
SPOKE TO LAB REGARDING TORY HANSON ORDERS TO D/C THE TROPONIN LEVEL LAB DRAWS. TROPONING LEVELS HAVE BEEN THERAPEUTIC. PATIENT AND VERBALIZED CONCERNS OF PATIENT GETTING POKED EVERY TIME. TORY D/C ORDER. LAB WILL CHECK TROPONIN LEVELS IF AT NORMAL RANGES WILL BE DISCONTINUED.
[2025-01-19] MEDS: CARBIDOPA-LEVODOPA 25-100 TAB PO SCH (14:57)
[2025-01-19 16:00] VITALS: BP 120/53; PULSE 85; RESP 16; TEMP 98.9
[2025-01-19] MEDS: FERROUS SULFATE 325 MG TABLET.DR PO SCH (18:25)
[2025-01-19 20:00] VITALS: BP 101/55; PULSE 88; RESP 20; TEMP 98.9; O2SAT 97
[2025-01-19] MEDS: MELATONIN 5 MG TABLET PO SCH (21:45)
--- NOTE | 2025-01-19 22:53 | PN ---
[facility] PROGRESS NOTE Date Patient Seen: Jan 19, 2025 Time of Visit: 22:53 Supervising Physician: Dr. Wilson Primary Care Physician: VIANCA TORRES Outpatient Specialists: [ ] Inpatient Consults: [ ] PROBLEM LIST: 1. UNSTABLE ANGINA 2. DIABETES TYPE 2 UNCONTROLLED 3. SHINGLES TO THE CHEST, POA 4. PARKINSON DISEASE, POA 5. UNSTEADY GAIT, POA INTERVAL HISTORY: Patient evaluated at bedside, was present. Patient's chest pain has resolved at this time, he continues on Valtrex for shingles. Patient's pain at this time as associated with the dermatome that is inflamed. D-dimer at 1149 today, bilateral lower extremity Doppler was negative. Patient's echocardiogram was negative for any acute findings, negative for pericardial effusion. We will monitor overnight and verify with morning labs, patient is a good candidate for discharge in the next 24 hours. Plan Continue Valtrex p.o. Continue cardiac monitoring Continue pain control Possible discharge in 24 hours. REVIEW OF SYSTEMS: 12 point ROS reviewed with patient. Pertinent positives mentioned above. Otherwise negative. PHYSICAL EXAM: GENERAL: alert, weak, awake oriented x 3 HEENT: EOMI, Sclera non icteric, moist mucosa NECK: Supple, no JVD, trachea midline LUNGS: Clear breath sounds bilaterally. No wheezes HEART: Regular rate and rhythm. Normal S1 and S2, without murmurs ABD: Abdomen soft, nontender. Bowel sounds present EXT: No clubbing cyanosis or edema NEURO: Alert and oriented to person, follows commands Vital Signs (last 8hr) Date Time Temp Pulse Resp B/P (MAP) Pulse Ox O2 Delivery O2 Flow Rate FiO2 01/19/25 20:00 99.0 88 20 101/55 97 Nasal Cannula 4.0 01/19/25 16:00 99.0 85 16 120/53 97 Nasal Cannula 4.0 LABS: Hematology Labs: Test 01/18/25 16:15 Range/Units White Blood Count 6.7 4.8-10.8 K/uL Red Blood Count 3.69 L 4.50-6.20 MIL/uL Hemoglobin 11.5 L 14.0-18.0 g/dL Hematocrit 36.6 L 42-54 % Mean Corpuscular Volume 99.2 H 79-99 fL Mean Corpuscular Hemoglobin 31.2 27.0-33.0 pg Mean Corpuscular Hemoglobin Concent 31.4 L 32.0-36.0 g/dL Red Cell Distribution Width 17.0 H 11.0-15.5 % Platelet Count 317 130-400 K/uL Mean Platelet Volume 8.3 7.5-10.5 fL Immature Granulocyte % (Auto) 0.7 0-1 % Neutrophils (%) (Auto) 82.5 H 40.0-77.0 % Lymphocytes (%) (Auto) 9.1 L 21.0-51.0 % Monocytes (%) (Auto) 7.3 3.0-13.0 % Eosinophils (%) (Auto) 0.3 0.0-8.0 % Basophils (%) (Auto) 0.1 0.0-5.0 % Neutrophils # (Auto) 5.5 1.8-7.7 K/uL Lymphocytes # (Auto) 0.6 L 1.0-4.8 K/uL Monocytes # (Auto) 0.5 0.1-1.0 K/uL Eosinophils # (Auto) 0.02 0.00-0.70 K/uL Basophils # (Auto) 0.01 0.00-0.20 K/uL Absolute Immature Granulocyte (auto 0.05 0-1 K/uL Nucleated Red Blood Cells 0.0 0.0-0.19 % White Cell Morphology Comment See comments Chemistry Labs: Test 01/19/25 22:16 01/19/25 20:02 01/18/25 16:15 Range/Units Troponin I High Sensitivity 16 4-75 ng/L Whole Blood Glucose 100 70-110 MG/DL Sodium Level 139 136-145 mmol/L Potassium Level 4.1 3.5-5.1 mmol/L Chloride Level 98 L 101-111 mmol/L Carbon Dioxide Level 33 H 21-32 mmol/L Blood Urea Nitrogen 21 H 7-18 mg/dL Creatinine 1.1 0.5-1.3 mg/dL Glomerular Filtration Rate Calc 66 >90 mL/min Random Glucose 181 H 70-105 mg/dL Total Calcium 9.3 8.5-10.1 mg/dL Magnesium Level 2.30 1.80-2.40 mg/dL B-Type Natriuretic Peptide 164 H 0-100 pg/mL Coagulation Labs: Test 01/18/25 22:53 Range/Units Prothrombin Time 11.9 H 9.6-11.6 SEC Prothromb Time International Ratio 1.14 0.85-1.15 Activated Partial Thromboplast Time 28.9 26.3-35.5 SEC D-Dimer Quantitative (PE/DVT) 1149 *H 0-500 ng/mL DIAGNOSTICS / RADIOLOGY RESULTS: [ ] PLAN NEURO: Minimize central acting medications as possible. Maintain fall precautions, adequate lighting during the day PULMONARY: Supplemental 02 as needed. Maintain aspiration precautions at all times CARDIOVASCULAR: Follow hemodynamics. Vital signs per facility protocol Nitroglycerin 0.4 mg sublingual p.r.n. for moderate chest pain Aspirin 81 mg p.o. daily Atorvastatin 40 mg p.o. at bedtime 2D echo cardiology read Serial troponin levels GI & NUTRITION: Continue with nutritional support. Continue stool softeners and laxatives as needed. KIDNEYS & ELECTROLYTES: Strict monitoring of intake, output and overall fluid balance. Avoid nephrotoxic medications to the extent possible. Medications to be dosed according to renal function. Monitor electrolytes and replace as needed ENDOCRINE: Maintain blood glucose between 100-180 at all times. Hypoglycemia protocol in place Accu-Cheks a.c. HS Insulin coverage per sliding scale Obtain hemoglobin A1c INFECTIOUS DISEASE: Trend temperature, WBC and procalcitonin level Follow cultures, deescalate antibiotics as soon as possible. Panculture if new onset fever Valacyclovir 1000 mg p.o. every 8 hours Acetaminophen 650 mg p.o. p.r.n. every 6 hours for pain Morphine 2 mg IV q.4 hours p.r.n. for severe chest pain ONCOLOGY/HEMATOLOGY/COAGULATION: Monitor for s/s of bleeding Monitor hemoglobin, coagulation studies as needed SKIN: Pressure ulcer prevention per facility protocol Specialty mattress ORTHO/REHAB: Continue PT/OT Prophylaxis: Continue GI and DVT prophylaxis Code Status: Full Resuscitation Disposition: TBD Other: Total patient care time exceeds 35 minutes excluding all procedures. Case discussed with Dr. Miguel A Adler, and the above plan was formulated. TORY MAYFIELD Jan 19, 2025 22:53
[2025-01-20] VITALS (7 sets, daily range): BP systolic 109–121; BP diastolic 56–65; PULSE 73–89; RESP 17–20; TEMP 98–98.5; O2SAT 95
--- NOTE | 2025-01-20 00:23 | HMCSR ---
APPROVED REPORT EXAM: Two-dimensional and M-mode echocardiogram with Doppler and color Doppler. INDICATION ICD: unstabe angina 2D Dimensions RVDd3.4 cmLVEF(%)54.9 (>50%)LVED Vol(simp.)50.5 mL IVSd0.8 (0.7-1.1cm)FS(%)28 %LVES Vol(simp.)23.9 mL LVDd4.5 (3.8-5.6cm)LA (2D)4.4 (1.6-4.0cm)LVEF(%, simp.)53 % PWd1.2 (0.7-1.1cm)Ao Root(2D)3.7 (2.0-3.7cm)LA ESV INDEX (BP)18.83 mL/m2 LVDs3.2 (2.5-4.0cm)LVOT diam2.5 (1.8-2.4cm) IVC diam1.4 cm Aortic Valve AoV Vmax1.2 m/Kerri Peak GR5.5 mmHgLVOT Vmax0.9 m/s AoV VTI0.2 mAo Mean GR3.0 mmHgLVOT VTI0.17 m ANTHONY (VMAX)3.82 cm2AVA (VTI) 3.5 cm2 Mitral Valve MV E Vmax46.8 cm/sDECEL Cubq340 ms MV A Vmax77.6 cm/sP 1/2 T60 ms E/A ratio0.6MVA (PHT)3.7 cm2 TDI E/E' Medial7.0E/E' Lateral3.8 Medial E' Peak V6.67 cm/sLateral E' Peak V12.35 cm/s Left Ventricle The left ventricle is normal size. No regional wall motion abnormalities noted. Mild concentric left ventricular hypertrophy. Sigmoid shaped septum. Left ventricular systolic function is normal, estimat ed LVEF is 55 to 60%. Grade 1 diastolic dysfunction. Right Ventricle The right ventricle is normal size. Right ventricle systolic function is grossly normal. Atria The left atrium size is normal. The right atrium size is normal. Aortic Valve Aortic valve is trileaflet. The leaflets are mildly thickened and calcified. Trace aortic regurgitati on. There is no aortic valvular stenosis. Mitral Valve Mild mitral annular calcification is noted. The leaflets are mildly thickened and calcified. Mild lloyd ral regurgitation. There is no mitral valve stenosis. Tricuspid Valve The tricuspid valve is normal in structure. Trace tricuspid regurgitation. RVSP is normal. Pulmonic Valve Pulmonic valve is not well visualized. Great Vessels The aortic root is normal in size. The IVC is normal in size and collapses >50% with inspiration. Pericardium There is no pericardial effusion. Other Information Technically limited study due to body habitus. Conclusion The cardiac chambers are normal in size. Mild concentric left ventricular hypertrophy. Sigmoid shaped septum. No regional wall motion abnormalities noted. Left ventricular systolic function is normal, estimated LVEF is 55 to 60%. Grade 1 diastolic dysfunction. Trace aortic regurgitation. Mild mitral regurgitation. Trace tricuspid regurgitation. PASP is normal. There is no pericardial effusion.
[2025-01-20 01:29] LABS: APPEARANCE,URINE CLOUDY (CLEAR); GLUCOSE, URINE (UA) 300 mg/dL (NEGATIVE); LEUKOCYTE ESTERASE ,URINE 500 Leu/uL (NEGATIVE); NITRATE,URINE NEGATIVE (NEGATIVE); OCCULT BLOOD,URINE SMALL (NEGATIVE)
[2025-01-20 01:40] LABS: ADD UA MICROSCOPIC YES
[2025-01-20 04:43] LABS: NUCLEATED RED BLOOD CELLS 0.0 % (0.0-0.19); PLATELET COUNT (AUTO) 244 K/uL (130-400); RED BLOOD CELL COUNT(AUTO) 3.22 MIL/uL (4.50-6.20); RED CELL DISTRIBUTION WIDTH 16.7 % (11.0-15.5); WHITE BLOOD COUNT (AUTO) 7.1 K/uL (4.8-10.8)
[2025-01-20 04:50] LABS: CREATININE 1.1 mg/dL (0.5-1.3); GLOMERULAR FILTR. RATE CALC 66.0 mL/min (>90); GLUCOSE,RANDOM 95.0 mg/dL (70-105); SODIUM SERUM 133.0 mmol/L (136-145); UREA NITROGEN, BLOOD 17.0 mg/dL (7-18)
[2025-01-20] MEDS: (Dapagliflozin Propanediol (Farxiga) 10MG TAB) PO SCH (09:00)
[2025-01-20] MEDS ORDERED: PRIMIDONE 50 MG TAB PO SCH (09:00)
[2025-01-20] MEDS: ASCORBIC ACID 500 MG TAB PO SCH (09:52)
[2025-01-20] MEDS: ASPIRIN 81MG CHEW TAB PO SCH (09:58)
--- NOTE | 2025-01-20 19:38 | NUR ---
DISCHARGE GAVE REPORT TO [facility] AT 1854. FAXED OVER MED REC [facility]. CALLED EMS AT 1856 AND SPOKE TO ELINOR AND SHE STATED THAT INFORMATION WAS NOT NEEDED TO SEND OUT DUE TO ALREADY RECEIVING IT EARLIER. PIV DC'D PATIENT INFORMED THAT HE'D BE GOING TO [facility], HE WAS OKAY WITH IT AND SIGNED DISCHARGE PAPER. ALL QUESTIONS ANSWERED PRIOR TO DISCHARGE
--- NOTE | 2025-01-20 21:48 | DS ---
[facility] DISCHARGE SUMMARY Date Patient Seen: Jan 20, 2025 Time of Visit: 21:45 Supervising Physician: Dr. Wilson Primary Care Physician: VIANCA TORRES Outpatient Specialists: [ ] Inpatient Consults: [ ] HOSPITAL COURSE: HPI (per admitting provider) Patient is a 84-year-old male resident [facility], with past medical history significant for coronary artery disease, hypothyroidism, diabetes type 2, and a surgical history of left knee surgery, back surgery, CABG, brought to the emergency department from the facility for evaluation of new onset of chest pain that started yesterday. Patient reports that for the past 24 hours, he has been experiencing on and off chest pain, and tonight, patient was transferred to the emergency department for further evaluation and treatment. Patient denies fever, chills, nausea, vomiting, diarrhea, shortness of breath, dizziness, or any other symptoms. Chest x-ray performed in the emergency department shows interstitial lung fibrosis. EKG unremarkable, troponin negative for the 1st two sets. In the emergency department, patient received aspirin 325 mg p.o.. Patient will be admitted to medical telemetry floor for further evaluation and treatment. The patient was treated for the following problems: Patient was admitted for acute chest pain, and was transferred from [facility] where he is a resident. Patient's cardiology workup was negative on this admission, echocardiogram with no acute new findings. Patient was found to have severe shingles across his chest following the dermatome. He was started on oral Valtrex q.8 hours. At the time of discharge the patient denies any chest pain, states that the pain associated with the shingles is lessened but still present. He remains on 3 L nasal cannula which is close to baseline, [facility] to continue to titrate and wean O2 as needed. He continues on Valtrex q.8 hours for approximately another 4-5 days. He is being discharged back to [facility]. ACTIVE PROBLEM LIST FOR THE HOSPITALIZATION: 1. UNSTABLE ANGINA 2. DIABETES TYPE 2 UNCONTROLLED 3. SHINGLES TO THE CHEST, POA CHRONIC PROBLEMS: continue previous management per PCP unless otherwise indicated 4. PARKINSON DISEASE, POA 5. UNSTEADY GAIT, POA [employer] FINDINGS/RECOMMENDATIONS: [ ] PROCEDURES: as mentioned above DISCHARGE MEDICATIONS: Pt hemodynamically stable and afebrile at time of discharge. PCP notified of patients admission, hospital course and discharge. PHYSICAL EXAM: GENERAL: alert, weak, awake oriented x 3 HEENT: EOMI, Sclera non icteric, moist mucosa NECK: Supple, no JVD, trachea midline LUNGS: Clear breath sounds bilaterally. No wheezes HEART: Regular rate and rhythm. Normal S1 and S2, without murmurs ABD: Abdomen soft, nontender. Bowel sounds present EXT: No clubbing cyanosis or edema NEURO: Alert and oriented to person, follows commands FOLLOW-UP: Follow-up with PCP in 2-3 days RECOMMENDATIONS: See Discharge Instructions This case was seen and discussed with my supervising physician. More than 30 minutes spent on discharge process, including evaluation of the patient, discussion with nursing staff, medication reconciliation and follow-up appointments TORY MAYFIELD Jan 20, 2025 21:48
== END 2025-01-20 20:56 ==
LOC: EDH 15:44 → EDHIP 20:44 → INTOOBSV 20:44 → EDHIP 22:21 → 4CH 22:52
PROVIDERS: ADMIT Internal Medicine; ATTEND Internal Medicine
DX: I25.110 Atherosclerotic heart disease of native coronary artery with unstable angina pectoris (principal); R07.89 Other chest pain; E11.65 Type 2 diabetes mellitus with hyperglycemia; B02.9 Zoster without complications; E03.9 Hypothyroidism, unspecified; E86.0 Dehydration; G40.909 Epilepsy, unspecified, not intractable, without status epilepticus; I11.0 Hypertensive heart disease with heart failure; I50.9 Heart failure, unspecified; F41.9 Anxiety disorder, unspecified; R60.0 Localized edema; K21.9 Gastro-esophageal reflux disease without esophagitis; Z79.899 Other long term (current) drug therapy; Z98.890 Other specified postprocedural states
CPT/HCPCS: 99285; 83735; 84484 ×9; 80048 ×2; 83880; 85025; 85378; 85610; 85730; 36415 ×2; 71045; 96374; 96375; 93005 ×2; 96372; 87086 ×2; 87186; 82948 ×8; 81001; 71270; 93306; 93970; 85027; J2270 ×2; J2405; G0378 ×32; J1650; Q9967; A6250